=== PATIENT | female | born 1970 | race Caucasian/White ===

== ENCOUNTER → 2020-09-03 | Outpatient (CLI) | payer OTHER | END | disposition still patient (30) | LOC: COL.RAD 12:00 | DX: E04.1 Nontoxic single thyroid nodule (principal); E03.9 Hypothyroidism, unspecified ==

== ENCOUNTER → 2022-10-17 | Outpatient (CLI) | payer OTHER | LOC: COL.RAD 15:47 | DX: E04.1 Nontoxic single thyroid nodule (principal) ==